=== PATIENT | male | born 1995 | race Caucasian/White ===

== ENCOUNTER 2017-08-02 02:36 | Emergency (ER) | payer SELFPAY ==
[~2017-08-02] VITALS: Ht 182.9 cm; Wt 72.7 kg
[2017-08-02 02:40] VITALS: TEMP 97.3
[2017-08-02 02:52] LABS: BASO % 0.4 % (0.0-2.0); EOS # 0.1 (0.0-0.7); EOS % 0.9 % (0-4.0); GRAN # 4.1 (1.4-6.5); GRAN % 58.9 % (42.2-75.2); HEMATOCRIT 45.1 % (42.0-52.0); HEMOGLOBIN 15.7 g/dl (13.5-18.0); LYMPH % 28.7 % (20.0-51.0); MEAN CELL VOLUME 87 fl (80.0-100.0); MEAN CORPUSCULAR HEMOGLOBIN 30 pg (27.0-31.0); MEAN CORPUSCULAR HGB CONC 35 g/dl (33.0-37.0); MEAN PLATELET VOLUME 9.8 fl (7.4-10.4); MONO # 0.8 (0.1-0.6); PLATELET COUNT 212 K/mm3 (130-400); RED BLOOD COUNT 5.17 M/mm3 (4.20-5.60); WHITE BLOOD COUNT 6.9 K/mm3 (4.8-10.8)
[2017-08-02 03:05] LABS: ADJUSTED CALCIUM 7.9 mg/dL (8.4-10.2); ALBUMIN 5.1 gm/dL (3.5-5.0); BILIRUBIN,TOTAL 0.5 mg/dL (0.0-1.0); CALCIUM 8.8 mg/dL (8.4-10.2); CREATININE, serum 0.86 mg/dL (0.66-1.25); POTASSIUM 3.6 mmol/L (3.4-5.0); TOTAL PROTEIN 8.2 gm/dL (6.4-8.2)
[2017-08-02 09:32] VITALS: BP 90/50; PULSE 86
== END 2017-08-02 09:25 | disposition home or self-care (01) ==
LOC: COL.ER 02:36
PROVIDERS: Emergency Medicine
DX: S01.81XA Laceration without foreign body of other part of head, initial encounter (principal); F10.129 Alcohol abuse with intoxication, unspecified; Y90.8 Blood alcohol level of 240 mg/100 ml or more; W19.XXXA Unspecified fall, initial encounter; Y92.410 Unspecified street and highway as the place of occurrence of the external cause
CPT/HCPCS: J2405; J7030